=== PATIENT | male | born 1985 | race Hispanic/Latino ===

== ENCOUNTER 2018-11-23 01:06 | Emergency (ER) | payer SELFPAY ==
[2018-11-23 01:20] VITALS: BP 161/90
[2018-11-23] MEDS ORDERED: ZOFRAN IV ONE ×2 (02:42→03:59)
[2018-11-23] MEDS ORDERED: NACL 0.9% 1000 ML 1,000 ML IV ONE (02:42)
[2018-11-23] MEDS ORDERED: CLEOCIN 900 MG/50 mL 900 MG/50 ML BAG IV ONE (02:42)
[2018-11-23] MEDS ORDERED: TORADOL IV ONE (02:42)
--- NOTE | 2018-11-23 02:49 | Emergency Department Report ---
ED Lower Extremity HPI - General Chief Complaint: Extremity Injury, Lower Stated Complaint: LEFT FOOT PAIN Time Seen by Provider: 11/23/18 02:40 Source: patient Mode of arrival: Ambulatory Limitations: No Limitations - History of Present Illness Initial Comments: Post left foot injury with postop infection states pain is worsening unable to ambulate yellow drainage had moved back up to 2 weeks ago patient denies fevers or chills no nausea vomiting denies new injury fall or trauma MD Complaint: foot injury Onset/Timin -: month(s) Injury: Foot: Left Type of Injury: blunt Place: work Severity: moderate Severity scale (0 -10): 5 Improves With: nothing Worsens With: weight bearing, movement, palpation Context: other (post op infection) Associated Symptoms: swelling, able to partially bear weight - Related Data Previous Rx's Medication Instructions Recorded Last Taken Type HYDROcodone/APAP 5-325 [Elysian 1 each PO Q6HR PRN #12 tablet 11/23/18 Unknown Rx 5-325 mg TAB] cephALEXin [Keflex] 500 mg PO Q8HR 10 Days #30 cap 11/23/18 Unknown Rx Allergies Allergy/AdvReac Type Severity Reaction Status Date / Time No Known Allergies Allergy Unverified 11/23/18 03:11 ED Review of Systems ROS: Stated complaint: LEFT FOOT PAIN Other details as noted in HPI Constitutional: denies: chills, fever Eyes: denies: eye pain, eye discharge, vision change ENT: denies: ear pain, throat pain Respiratory: denies: cough, shortness of breath, wheezing Cardiovascular: denies: chest pain, palpitations Endocrine: no symptoms reported Gastrointestinal: denies: abdominal pain, nausea, diarrhea Genitourinary: denies: urgency, dysuria Musculoskeletal: other (dorsal foot pain ). denies: back pain, joint swelling, arthralgia Skin: other (erythema dorsal foot ). denies: rash, lesions Neurological: denies: headache, weakness, paresthesias Psychiatric: denies: anxiety, depression Hematological/Lymphatic: denies: easy bleeding, easy bruising ED Past Medical Hx - Past Medical History Previous Medical History?: No - Surgical History Past Surgical History?: Yes Additional Surgical History: Left foot injury - Social History Smoking Status: Current Every Day Smoker Substance Use Type: None - Medications Home Medications: Home Medications Medication Instructions Recorded Confirmed Last Taken Type HYDROcodone/APAP 5-325 [Elysian 1 each PO Q6HR PRN #12 tablet 11/23/18 Unknown Rx 5-325 mg TAB] cephALEXin [Keflex] 500 mg PO Q8HR 10 Days #30 cap 11/23/18 Unknown Rx ED Physical Exam - General Limitations: No Limitations General appearance: alert - Head Head exam: Present: atraumatic, normocephalic - Eye Eye exam: Present: normal appearance, PERRL, EOMI Pupils: Present: normal accommodation - ENT ENT exam: Present: mucous membranes moist. Absent: normal external ear exam - Neck Neck exam: Present: normal inspection - Respiratory Respiratory exam: Present: normal lung sounds bilaterally. Absent: respiratory distress, wheezes, stridor, chest wall tenderness - Cardiovascular Cardiovascular Exam: Present: regular rate, normal rhythm, normal heart sounds. Absent: systolic murmur, diastolic murmur, rubs, gallop - GI/Abdominal GI/Abdominal exam: Present: soft, normal bowel sounds - Rectal Rectal exam: Present: deferred - Extremities Exam Extremities exam: Present: normal inspection, full ROM, tenderness, normal capillary refill. Absent: pedal edema, joint swelling, calf tenderness - Expanded Lower Extremity Exam Left Foot/Toe exam: Present: tenderness, swelling, erythema. Absent: abrasion, laceration, ecchymosis, deformity, crepidus, dislocation, amputation, puncture wound, tenderness at base of 5th metatarsal, nail avulsion, subungual hematoma Neuro vascular tendon exam: Absent: pulse deficit, motor deficit, sensory deficit, tendon deficit, peroneal nerve deficit Gait: Positive: observed and limited by pain - Back Exam Back exam: Present: normal inspection, full ROM. Absent: tenderness, CVA tenderness (R), muscle spasm, paraspinal tenderness, vertebral tenderness, rash noted - Neurological Exam Neurological exam: Present: alert, oriented X3, CN II-XII intact, normal gait, reflexes normal. Absent: motor sensory deficit - Psychiatric Psychiatric exam: Present: normal affect - Skin Skin exam: Present: warm, dry, intact, normal color. Absent: rash ED Course Vital Signs 11/23/18 01:17 Temperature 98.2 F Pulse Rate 101 H Respiratory 18 Rate Blood Pressure 161/90 O2 Sat by Pulse 97 Oximetry ED Lower Extremity MDM - Lab Data Result diagrams: 11/23/18 03:10 11/23/18 03:10 - Radiology Data Radiology results: report reviewed, image reviewed Ordering Physician: DINA HARRINGTON NP Date of Service: 11/23/18 Procedure(s): XR foot 2V LT Accession Number(s): [id number] cc: DINA HARRINGTON NP Fluoro Time In Minutes: Left foot, 2 views INDICATION: Postop pain, infection FINDINGS: There is slight bunion formation at the head of the first metatarsal. The joint spaces are intact. There is no fracture or dislocation. No spurring or arthritic change. No foreign body is seen. There is no osteomyelitis identified. No significant abnormality. Signer Name: Harjit Parker MD Signed: 11/23/2018 3:00 AM Workstation Name: [id number] Transcribed By: TRUDY Dictated By: Harjit Parker MD Electronically Authenticated By: Harjit Parker MD Signed Date/Time: 11/23/18 0300 DD/ 0259 TD/TT: - Medical Decision Making xray normal no fracture ostesomyelitis plan dc to home with keflex, hydrocodone, follow up [facility] orthopedic surgery, Dr. Polanco, pain is improve there is no drainage , no fever no chills, deformity, distal pulses +2 bilat, pt verbalized agreement and understanding of same. Critical care attestation.: If time is entered above; I have spent that time in minutes in the direct care of this critically ill patient, excluding procedure time. ED Disposition Clinical Impression: Cellulitis of foot, Post-op pain Disposition: DC-01 TO HOME OR SELFCARE Is pt being admited?: No Does the pt Need Aspirin: No Condition: Stable Instructions: Cellulitis (ED) Prescriptions: cephALEXin [Keflex] 500 mg PO Q8HR 10 Days #30 cap HYDROcodone/APAP 5-325 [Elysian 5-325 mg TAB] 1 each PO Q6HR PRN #12 tablet PRN Reason: Pain Referrals: CHEYANNE POLANCO MD [Staff Physician] - 3-5 Days Forms: Work/School Release Form(ED) Time of Disposition: 04:24
--- NOTE | 2018-11-23 03:04 | XRay Report ---
Left foot, 2 views INDICATION: Postop pain, infection FINDINGS: There is slight bunion formation at the head of the first metatarsal. The joint spaces are intact. There is no fracture or dislocation. No spurring or arthritic change. No foreign body is seen . There is no osteomyelitis identified. No significant abnormality. Signer Name: Harjit Parker MD Signed: 11/23/2018 3:00 AM Workstation Name: [id number]
[2018-11-23 03:36] LABS: Basophils % (Auto) 0.7 % (0.0-1.8); Eosinophils # (Auto) 0.2 K/mm3 (0.0-0.4); Eosinophils % (Auto) 2.7 % (0.0-4.3); Hematocrit 29.3 % (35.5-45.6); Hemoglobin 9.9 gm/dl (11.8-15.2); Lymphocytes # (Auto) 1.5 K/mm3 (1.2-5.4); Lymphocytes % (Auto) 26.6 % (13.4-35.0); Mean Corpuscular HGB Conc 34 % (32-34); Mean Corpuscular Volume 81 fl (84-94); Monocytes # (Auto) 0.4 K/mm3 (0.0-0.8); Monocytes % (Auto) 6.6 % (0.0-7.3); Platelet Count 263 K/mm3 (140-440); Red Blood Count 3.64 M/mm3 (3.65-5.03); Red Cell Distribution Width 14.9 % (13.2-15.2)
[2018-11-23 03:46] LABS: BUN/Creatinine Ratio 11; Blood Urea Nitrogen 9 mg/dL (9-20); Calcium 8.8 mg/dL (8.4-10.2); Hemolysis Index 0
[2018-11-23] MEDS ORDERED: MORPHINE IV ONE (03:59)
[2018-11-23] MEDS ORDERED: MORPHINE ONE (04:02)
== END 2018-11-23 04:56 | disposition home or self-care (01) ==
LOC: ED 01:06
DX: L03.116 Cellulitis of left lower limb (principal); F17.200 Nicotine dependence, unspecified, uncomplicated; G89.18 Other acute postprocedural pain; Z79.899 Other long term (current) drug therapy
CPT/HCPCS: 36415; 73620; 80048; 82140; 85025; 96365; 96375; 99284; J1885; J2270; J2405; J7030